=== PATIENT | male | born 1995 | race American Indian/Alaskan Native ===

== ENCOUNTER 2018-04-07 10:08 | Emergency (ER) | payer SELFPAY ==
[2018-04-07 11:47] LABS: Basophils % (Auto) 0.2 % (0.0-1.8); Eosinophils % (Auto) 0.3 % (0.0-4.3); Hemoglobin 16.5 gm/dl (11.8-15.2); Lymphocytes # (Auto) 0.9 K/mm3 (1.2-5.4); Lymphocytes % (Auto) 9.2 % (13.4-35.0); Mean Corpuscular HGB Conc 35 % (32-34); Mean Corpuscular Hemoglobin 32 pg (28-32); Mean Corpuscular Volume 90 fl (84-94); Monocytes # (Auto) 1.2 K/mm3 (0.0-0.8); Monocytes % (Auto) 12.7 % (0.0-7.3); Platelet Count 235 K/mm3 (140-440); Red Cell Distribution Width 13.3 % (13.2-15.2)
[2018-04-07 12:08] LABS: BUN/Creatinine Ratio 18; Blood Urea Nitrogen 16 mg/dL (9-20); Calcium 9.2 mg/dL (8.4-10.2); Hemolysis Index 11
--- NOTE | 2018-04-07 15:12 | Emergency Department Report ---
ED Chest Pain HPI - General Chief Complaint: Chest Pain Stated Complaint: CHEST PAINS/LEFT ARM NUMB Time Seen by Provider: 04/07/18 15:11 Source: patient, family Mode of arrival: Ambulatory Limitations: No Limitations - History of Present Illness Initial Comments: This is a 22-year-old male he states that he woke up with chest pain and left arm pain this morning at 9 out of 10. He reports chest pain is in his mid chest and pain worse with movement. He also reports pain with taking a deep breath. States that he had some nausea and denies any cough. Denies any fever or chills or shortness of breath. Denies any swelling to his legs. Patient does not have any history of any medical problems. He does have family history of heart disease. Pain is achy and burning/intermittent. No medication taken. MD Complaint: chest pain -: This morning Onset: during rest Pain Location: epigastric Pain Radiation: LUE Severity: severe Severity scale (0 -10): 9 Quality: aching, other (burning) Consistency: intermittent Improves With: nothing Worsens With: nothing Context: other (unknown) re: nausea. denies: vomting, diaphoresis, dyspnea, sense of impending doom Other Symptoms: denies: cough, fever, syncope, rash, acid taste in mouth, leg swelling, palpitations, burping Treatments Prior to Arrival: none Aspirin use within the Past 7 Days: (0) No - Related Data On Oral Contraceptives: No Previous Rx's Medication Instructions Recorded Last Taken Type Ranitidine HCl [Zantac 150 MG TAB] 150 mg PO Q12H 30 Days #60 tablet 04/07/18 Unknown Rx Allergies Allergy/AdvReac Type Severity Reaction Status Date / Time No Known Allergies Allergy Unverified 04/07/18 10:19 Heart Score - HEART Score History: Slightly suspicious EKG: Non-specific Age: < 45 Risk factors: 1-2 risk factors Troponin: < normal limit HEART Score: 2 - Critical Actions Critical Actions: 0-3 pts:0.9-1.7%risk of adverse cardiac event.Candidate for discharge ED Review of Systems ROS: Stated complaint: CHEST PAINS/LEFT ARM NUMB Other details as noted in HPI Constitutional: denies: chills, fever Eyes: denies: eye pain, eye discharge, vision change ENT: denies: ear pain, throat pain, congestion Respiratory: denies: cough, shortness of breath, SOB with exertion, SOB at rest , stridor, wheezing Cardiovascular: chest pain. denies: palpitations, dyspnea on exertion, edema, syncope, paroxysmal nocturnal dyspnea Gastrointestinal: nausea. denies: abdominal pain, vomiting, diarrhea, constipation, hematemesis, melena, hematochezia Genitourinary: denies: urgency, dysuria Musculoskeletal: arthralgia. denies: back pain, joint swelling, myalgia Skin: denies: rash, lesions Neurological: denies: headache, weakness, numbness, paresthesias, confusion, abnormal gait, vertigo Psychiatric: denies: anxiety, depression ED Past Medical Hx - Past Medical History Previous Medical History?: No - Surgical History Past Surgical History?: No - Family History Family history: CAD/ND, hypertension - Social History Smoking Status: Never Smoker Substance Use Type: None - Medications Home Medications: Home Medications Medication Instructions Recorded Confirmed Last Taken Type Ranitidine HCl [Zantac 150 MG TAB] 150 mg PO Q12H 30 Days #60 tablet 04/07/18 Unknown Rx ED Physical Exam - General Limitations: No Limitations General appearance: alert, in no apparent distress - Head Head exam: Present: atraumatic, normocephalic, normal inspection - Eye Eye exam: Present: normal appearance, PERRL, EOMI Pupils: Present: normal accommodation - ENT ENT exam: Present: normal exam, normal orophraynx, mucous membranes moist, TM's normal bilaterally, normal external ear exam - Neck Neck exam: Present: normal inspection, full ROM, other (no C-spine tenderness). Absent: tenderness, meningismus, lymphadenopathy - Respiratory Respiratory exam: Present: normal lung sounds bilaterally. Absent: respiratory distress, wheezes, rales, rhonchi, stridor, chest wall tenderness, accessory muscle use, decreased breath sounds, prolonged expiratory - Cardiovascular Cardiovascular Exam: Present: regular rate, normal rhythm, normal heart sounds. Absent: systolic murmur, diastolic murmur - GI/Abdominal GI/Abdominal exam: Present: soft, normal bowel sounds. Absent: distended, tenderness, guarding, rebound, rigid, organomegaly, mass - Extremities Exam Extremities exam: Present: normal inspection, full ROM, normal capillary refill , other (No cce. + 2 pulses in all extremities, no neurovascular compromise). Absent: tenderness, pedal edema, joint swelling, calf tenderness - Back Exam Back exam: Present: normal inspection, full ROM, other (ambulate without any difficulties). Absent: tenderness, CVA tenderness (R), CVA tenderness (L), muscle spasm, paraspinal tenderness, vertebral tenderness, rash noted - Neurological Exam Neurological exam: Present: alert, oriented X3, normal gait, reflexes normal. Absent: motor sensory deficit - Psychiatric Psychiatric exam: Present: normal affect, normal mood - Skin Skin exam: Present: warm, dry, intact, normal color. Absent: rash ED Course Vital Signs 04/07/18 04/07/18 10:19 17:24 Temperature 100.5 F H 99.1 F Pulse Rate 95 H 86 Respiratory 16 16 Rate Blood Pressure 122/74 Blood Pressure 120/74 [Left] O2 Sat by Pulse 98 100 Oximetry - Reevaluation(s) Reevaluation #1: 04/07/18 15:17 Patient is currently stable. He said this pain is on and off and burning type pain. Pain with inspiration. If x-ray ordered. Troponin 2 is negative. GI cocktail in progress. Motrin for low-grade fever Reevaluation #2: 04/07/18 16:30 Reevaluation after Motrin and GI cocktail given patient's that he felt better. He has no chest pain. JOHN score - John Score Age > 65: (0) No Aspirin use within the Past 7 Days: (0) No 3 or more CAD Risk Factors: (0) No 2 or more Angina events in past 24 hrs: (0) No Known CAD with more than 50% Stenosis: (0) No Elevated Cardiac Markers: (0) No ST Deviation Greater than 0.5mm: (0) No JOHN Score: 0 ED Medical Decision Making - Lab Data Result diagrams: 04/07/18 11:35 04/07/18 11:35 Lab Results 04/07/18 04/07/18 04/07/18 Range/Units 11:35 11:35 14:15 WBC 9.4 (4.5-11.0) K/mm3 RBC 5.20 H (3.65-5.03) M/mm3 Hgb 16.5 H (11.8-15.2) gm/dl Hct 47.0 H (35.5-45.6) % MCV 90 (84-94) fl MCH 32 (28-32) pg MCHC 35 H (32-34) % RDW 13.3 (13.2-15.2) % Plt Count 235 (140-440) K/mm3 Lymph % (Auto) 9.2 L (13.4-35.0) % [place] % (Auto) 12.7 H (0.0-7.3) % Eos % (Auto) 0.3 (0.0-4.3) % Baso % (Auto) 0.2 (0.0-1.8) % Lymph # 0.9 L (1.2-5.4) K/mm3 [place] # 1.2 H (0.0-0.8) K/mm3 Eos # 0.0 (0.0-0.4) K/mm3 Baso # 0.0 (0.0-0.1) K/mm3 Seg Neutrophils % 77.6 H (40.0-70.0) % Seg Neutrophils # 7.3 (1.8-7.7) K/mm3 Sodium 137 (137-145) mmol/L Potassium 3.7 (3.6-5.0) mmol/L Chloride 95.5 L (98-107) mmol/L Carbon Dioxide 24 (22-30) mmol/L Anion Gap 21 mmol/L BUN 16 (9-20) mg/dL Creatinine 0.9 (0.8-1.5) mg/dL Estimated GFR > 60 ml/min BUN/Creatinine Ratio 18 % Glucose 103 H (75-100) mg/dL Calcium 9.2 (8.4-10.2) mg/dL Troponin T < 0.010 < 0.010 (0.00-0.029) ng/mL - EKG Data -: EKG Interpreted by Me (Dr. Caballero he will) EKG shows normal: sinus rhythm Rate: normal - EKG Data Interpretation: nonspecific ST-T wave les - Radiology Data Radiology results: report reviewed Chest x-ray 2 views dictated by radiologist and reviewed by myself. No evidence of acute cardiopulmonary processes per radiologist. Patient: MIQUEL ALONSO MR#: [id number] : 1995 Acct:[id number] Age/Sex: 22 / M ADM Date: 04/07/18 Loc: ED Attending Dr: Ordering Physician: JERARDO CLOUD Date of Service: 04/07/18 Procedure(s): XR chest routine 2V Accession Number(s): [id number] cc: JERARDO CLOUD Fluoro Time In Minutes: FINAL REPORT EXAM: XR CHEST ROUTINE 2V HISTORY: cp TECHNIQUE: PA and lateral views of the chest Comparison: None FINDINGS: There is no evidence of infiltrate, pneumothorax or pleural fluid collection. The cardiomediastinal silhouette is normal appearance. The bony structures are unremarkable. IMPRESSION: 1. No evidence of an acute pulmonary process. Transcribed By: ED Dictated By: GALO BARBER MD Electronically Authenticated By: GALO BARBER MD Signed Date/Time: 04/07/181608 DD/ 08 TD/TT: 04/07/181608 - Medical Decision Making This is a 22-year-old male here reports that he is having epigastric pain with pain radiating to his left arm. He reports that he has family history of heart disease and his mom's here worried and wants patient to be evaluated. Patient was screened by Dr. Araiza and or displaced. I saw patient and examination with normal exam. He has no chest wall tenderness. Patient was given Maalox 30 mL with lidocaine 15 mls which relieve his chest pain. He was also given Motrin because she had low-grade fever now his vital signs are stable he is afebrile. He had one episode of left arm pain when he woke up this morning but none now. Patient had CBC which were stable region except for some elevation in H&H, troponin 2 normal, BMP within normal limits. normal sinus rhythm with nonspecific changes but no acute findings. I discussed resolve of laboratory and x-ray findings with patient and his mother and they voice understanding. I discussed with them that he should try bland diet for a few days and also to avoid spicy food and carbonated beverages because this could be from acid reflux. I discussed with them that I will place him on Zantac and also that patient needs to follow up with log processor operator for further studies since he had close relative with sudden cardiac and mom with heart disease. I discussed the patient and mom that he will need to have echocardiogram and stress test done by a log processor operator. Patient does not have a primary care mom reports that she is going to and also with her log processor operator for outpatient follow-up. He does have access to medical care. I discussed with patient that if his symptoms started to return to the emergency room but otherwise scheduled appointment for outpatient visit with primary care and log processor operator for further cardiac workup and he voiced understanding. Patient discharged home with prescription for Zantac . He is nontoxic in appearance and pain-free. - Differential Diagnosis ACS, PNA, costochondritis, musculoskeletal pain Critical care attestation.: If time is entered above; I have spent that time in minutes in the direct care of this critically ill patient, excluding procedure time. ED Disposition Clinical Impression: Atypical chest pain Disposition: DC-01 TO HOME OR SELFCARE Is pt being admited?: No Does the pt Need Aspirin: No Condition: Stable Instructions: Chest Pain (ED) Additional Instructions: Please follow up with log processor operator and primary care as discussed. You will need a further study for cardiac workup to include echocardiogram and stress test to rule out any kind of cardiac abnormality but as of now you are stable. Avoid spicy food and carbonated beverages as this could be 3 for your chest pain. Take Zantac as prescribed Increase her fluid intake If symptoms worsens, please return to emergency room Prescriptions: Ranitidine HCl [Zantac 150 MG TAB] 150 mg PO Q12H 30 Days #60 tablet Referrals: GAMALIEL JOHNSON MD [Staff Physician] - 04/09/18 AKILAH GARCIA JR, MD [Staff Physician] - 04/09/18 Forms: Accompanied Note, Work/School Release Form(ED)
[2018-04-07] MEDS ORDERED: ALUM-MAG HYDROX-SIMETH 200-200-20MG/5ML PO ONE (15:19)
[2018-04-07] MEDS ORDERED: LIDOCAINE VISCOUS 2% PO ONE (15:19)
[2018-04-07] MEDS ORDERED: MOTRIN PO ONE (15:19)
--- NOTE | 2018-04-07 16:10 | XRay Report ---
FINAL REPORT EXAM: XR CHEST ROUTINE 2V HISTORY: cp TECHNIQUE: PA and lateral views of the chest Comparison: None FINDINGS: There is no evidence of infiltrate, pneumothorax or pleural fluid collection. The cardiomediastinal silhouette is normal appearance. The bony structures are unremarkable. IMPRESSION: 1. No evidence of an acute pulmonary process.
[2018-04-07 17:26] VITALS: BP 120/74
== END 2018-04-07 17:24 | disposition home or self-care (01) ==
LOC: ED 10:08
DX: R07.89 Other chest pain (principal); M79.602 Pain in left arm; R11.0 Nausea
CPT/HCPCS: 36415; 71046; 80048; 84484; 85025; 93005; 93010; 99284